=== PATIENT | male | born 1965 | race Caucasian/White ===

== ENCOUNTER 2017-07-25 09:48 | Inpatient (IN) | payer BC, OTHER ==
--- NOTE | 2017-07-25 09:57 | PDOC ---
History of Present Illness - General Chief Complaint: CVA/TIA Stated Complaint: left arm pins and needles and left sice numbness Time Seen by Provider: 07/25/17 09:55 - History of Present Illness Initial Comments: 07/25/17 10:45 Chief complaint: Numbness and tingling in the left arm and left side of face History of present illness: Approximately one hour ago, while the patient was driving, he began to experience numbness and tingling of the entire left arm and the left side of his face. This has persisted, although it is less pronounced at present. Denies being aware of any other symptoms Review of systems: Denies headache, weakness of the arms or legs, confusion, difficulty speaking, unsteadiness of gait. Denies chest pain, shortness of breath, abdominal pain, nausea, vomiting, diarrhea, urinary symptoms, recent sore throat, URI, cough, or fever. Remainder systems reviewed and found to be negative Past medical history: Patient denies any serious medical or surgical problems in the past. Takes no medication at home. 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 Fully ambulatory. Exercises 2 times per week at the gym. No chest pain or shortness of breath while exercising Family history: Father at age 49 from unspecified heart condition, although he was a heavy smoker and drinker. Family history otherwise negative Physical exam: Alert and oriented 3, well-developed well-nourished, complaining of tingling in the arm and left side of the face. However, patient is cheerful and fully cooperative Afebrile, vital signs stable except for mildly elevated blood pressure PERRLA 4 mm, fundi benign with sharp disc margins and good central venous pulsations. EOMs full without diplopia. ENT clear. Neck supple without bruit mass or nodes Lungs clear with full breath sounds throughout bilaterally, no wheezes rales or rhonchi CV S1 and S2 distant without murmur rub or gallop pulses full and symmetric no JVD or edema no bruits Abdomen soft nontender without mass or organomegaly bowel sounds normal nondistended Extremities no CCE Neurological paresthesias and abnormal sensations left lower facial. Paresthesias and decreased sensation left arm and hand, no dermatomal distribution. Strength, however, is maintained, full and symmetric. DTRs 3+ symmetric. Babinskis down. Gait stable and unimpaired Skin clear, no rash, adequate turgor and wet mucous membranes Impression: Neurological changes, sensory, left arm and face, rule out neurologic, cardiac, or metabolic event. Plan: Diagnostic workup including brain CT, EKG and enzymes, CBC and chemistries , urinalysis, and further evaluation depending on results. Neurologic consultation. Past History - Past Medical History Allergies/Adverse Reactions: Allergies Allergy/AdvReac Type Severity Reaction Status Date / Time No Known Allergies Allergy Verified 07/25/17 09:49 Home Medications: Ambulatory Orders NK [No Known Home Medication] 07/25/17 GI Disorders: Yes (diverticulitis) - Suicide/Smoking/Psychosocial Hx Smoking History: Former smoker Have you smoked in the past 12 months: Yes Number of Cigarettes Smoked Daily: 10 If you are a former smoker, when did you quit?: 10 years ago Cigars Per Day: 1 Information on smoking cessation initiated: Yes 'Breaking Loose' booklet given: 07/25/17 Hx Alcohol Use: No Drug/Substance Use Hx: No Substance Use Type: None Hx Substance Use Treatment: No *Physical Exam - Vital Signs Last Vital Signs Temp Pulse Resp BP Pulse Ox 98.8 F 89 18 193/98 96 07/25/17 09:49 07/25/17 09:49 07/25/17 09:49 07/25/17 09:49 07/25/17 09:49 Critical Care Time/MDM Note Total Critical Care Time: 30 Critical Care Statement: The care of this patient involved high complexity decision making to prevent further life threatening deterioration of the patient 's condition and/or to evaluate & treat vital organ system(s) failure or risk of failure. - Medical Decision Making Note: 07/25/17 11:09 EKG was reviewed. Normal sinus rhythm 88/m. Normal axes and intervals. There are T-wave inversions in leads V2 through V6, as well as leads 1 aVL, and flattening in aVF. LVH is present. These ST-T wave changes, however, were present in prior EKG dated 09/21/2013. There appears to be no significant interval change. Head CT shows multiple small old infarcts of the right cerebellar left thalamic and left anterior periventricular regions, there are no acute infarcts identified and no hemorrhages. Discharge Disposition - Diagnosis Cerebrovascular accident (CVA) Qualifiers: CVA mechanism: occlusion Precerebral and cerebral artery: middle cerebral artery Laterality of affected vessel: right Qualified Code(s): I63.511 - Cerebral infarction due to unspecified occlusion or stenosis of right middle cerebral artery - Discharge Dispostion Condition at time of disposition: Stable Admit: Yes
[2017-07-25 10:19] LABS: BASOPHIL 1.3 % (0-2.0); EOSINOPHIL 1.5 % (0-4.5); MEAN CELL VOLUME 91.2 fl (80-96); MEAN PLT VOLUME 9.4 fl (7.5-11.1); NEUTROPHILS 68.6 % (42.8-82.8); PLATELET COUNT 270 K/MM3 (134-434); WHITE BLOOD COUNT 11.9 K/mm3 (4.0-10.8)
[2017-07-25 10:24] LABS: PROTHROMBIN TIME (PATIENT) 11.2 SEC (10.2-13.0)
[2017-07-25 10:39] LABS: ALBUMIN 4.2 g/dl (3.5-5.0); ALK PHOS 87 U/L (32-92); ANION GAP 7 (8-16); BILIRUBIN,TOTAL 0.6 mg/dl (0.2-1.0); CALCIUM 9.3 mg/dl (8.4-10.2); CO2 24 mmol/L (22-28); CPK 207 IU/L (39-308); GLUCOSE,RANDOM 107 mg/dl (74-106); SGOT/AST 23 U/L (10-42); SGPT/ALT 30 U/L (10-40); TOT PROT 6.8 g/dl (6.4-8.3)
[2017-07-25 10:47] LABS: TROPONIN I (DFP) 0.04 ng/ml (0.03-0.50)
[2017-07-25] MEDS ORDERED: LABETALOL HCL 5 MG/1 ML (100MG/20 ML VIAL) IVPUSH ONE ×2 (11:33→11:57)
[2017-07-25] MEDS ORDERED: LABETALOL HCL 5 MG/1 ML (100MG/20 ML VIAL) ONE (11:47)
--- NOTE | 2017-07-25 12:14 | HP ---
CHIEF COMPLAINT: left facial numbness PCP: "I don't have a doctor" HISTORY OF PRESENT ILLNESS: Patient is a 52 y/o male with a past medical history of diverticulitis and hypertension. Patient reports at 0800 on this date, he developed left sided facial and arm numbness. Patient reports the symptoms resolved after arriving to the emergency department. Patient denies any chest pain or shortness of breath. He does report a past medical history of hypertension, however, he does not take any medications at home. ER course was notable for: (1)ct of head right cerebellar, left thalamic, and left periventricular small old infarcts (2) b/p 193/98 (3) ekg nsr t wave inversions in the anterior lateral leads Recent Travel: none PAST MEDICAL HISTORY: hypertension, diverticulitis. PAST SURGICAL HISTORY: none Social History: employed Smoking:former smoker quit 10 years ago Alcohol: social Drugs: none Family History: father unknown heart condition. Allergies No Known Allergies Allergy (Verified 07/25/17 09:49) HOME MEDICATIONS: Home Medications Medication Instructions Recorded NK [No Known Home Medication] 07/25/17 REVIEW OF SYSTEMS CONSTITUTIONAL: Absent: fever, chills, diaphoresis, generalized weakness, malaise, loss of appetite, weight change HEENT: Absent: rhinorrhea, nasal congestion, throat pain, throat swelling, difficulty swallowing, mouth swelling, ear pain, eye pain, visual changes CARDIOVASCULAR: Absent: chest pain, syncope, palpitations, irregular heart rate, lightheadedness , peripheral edema RESPIRATORY: Absent: cough, shortness of breath, dyspnea with exertion, orthopnea, wheezing, stridor, hemoptysis GASTROINTESTINAL: Absent: abdominal pain, abdominal distension, nausea, vomiting, diarrhea, constipation, melena, hematochezia GENITOURINARY: Absent: dysuria, frequency, urgency, hesitancy, hematuria, flank pain, genital pain MUSCULOSKELETAL: Absent: myalgia, arthralgia, joint swelling, back pain, neck pain SKIN: Absent: rash, itching, pallor HEMATOLOGIC/IMMUNOLOGIC: Absent: easy bleeding, easy bruising, lymphadenopathy, frequent infections ENDOCRINE: Absent: unexplained weight gain, unexplained weight loss, heat intolerance, cold intolerance NEUROLOGIC: Present: left sided facial and arm paresthesia Absent: headache, focal weakness or paresthesias, dizziness, unsteady gait, seizure, mental status changes, bladder or bowel incontinence PSYCHIATRIC: Absent: anxiety, depression, suicidal or homicidal ideation, hallucinations. PHYSICAL EXAMINATION Vital Signs - 24 hr 07/25/17 07/25/17 07/25/17 09:49 09:54 11:10 Temperature 98.8 F Pulse Rate 89 Pulse Rate [ 90 84 Apical] Respiratory 18 18 20 Rate Blood Pressure 193/98 Blood Pressure 174/92 158/110 [Arm] O2 Sat by Pulse 96 98 98 Oximetry (%) 07/25/17 11:59 Temperature Pulse Rate Pulse Rate [ 74 Apical] Respiratory 16 Rate Blood Pressure Blood Pressure 146/96 [Arm] O2 Sat by Pulse 96 Oximetry (%) GENERAL: Awake, alert, and fully oriented, in no acute distress. HEAD: Normal with no signs of trauma. EYES: Pupils equal, round and reactive to light, extraocular movements intact, sclera anicteric, conjunctiva clear. No lid lag. EARS, NOSE, THROAT: Ears normal, nares patent, oropharynx clear without exudates. Moist mucous membranes. NECK: Normal range of motion, supple without lymphadenopathy, JVD, or masses. LUNGS: Breath sounds equal, clear to auscultation bilaterally. No wheezes, and no crackles. No accessory muscle use. HEART: Regular rate and rhythm, normal S1 and S2 without murmur, rub or gallop. ABDOMEN: Soft, nontender, not distended, normoactive bowel sounds, no guarding, no rebound, no masses. No hepatomegaly or splenomegaly. MUSCULOSKELETAL: Normal range of motion at all joints. No bony deformities or tenderness. No CVA tenderness. UPPER EXTREMITIES: 2+ pulses, warm, well-perfused. No cyanosis. No clubbing. No peripheral edema. LOWER EXTREMITIES: 2+ pulses, warm, well-perfused. No calf tenderness. No peripheral edema. NEUROLOGICAL: Cranial nerves II-XII intact. upper extremity 3/4, lower extremity 4/4, flattening of left nasal labial fold Normal speech. Normal gait. PSYCHIATRIC: Cooperative. Good eye contact. Appropriate mood and affect. SKIN: Warm, dry, normal turgor, no rashes or lesions noted, normal capillary refill. Laboratory Results - last 24 hr 07/25/17 07/25/17 07/25/17 09:59 10:00 10:00 WBC 11.9 H RBC 5.79 H Hgb 18.0 H D Hct 52.8 H MCV 91.2 MCH 31.0 MCHC 34.0 RDW 13.0 Plt Count 270 D MPV 9.4 Neutrophils % 68.6 Lymphocytes % 19.7 D Monocytes % 8.9 Eosinophils % 1.5 Basophils % 1.3 D PT with INR 11.2 INR 1.00 Sodium Potassium Chloride Carbon Dioxide Anion Gap BUN Creatinine Creat Clearance w eGFR POC Glucometer [id number] Random Glucose Calcium Total Bilirubin AST ALT Alkaline Phosphatase Creatine Kinase Creatine Kinase Index CK-MB (CK-2) Troponin I Total Protein Albumin 07/25/17 10:00 WBC RBC Hgb Hct MCV MCH MCHC RDW Plt Count MPV Neutrophils % Lymphocytes % Monocytes % Eosinophils % Basophils % PT with INR INR Sodium 135 L Potassium 4.1 Chloride 104 Carbon Dioxide 24 Anion Gap 7 L BUN 15 D Creatinine 1.0 Creat Clearance w eGFR > 60 POC Glucometer Random Glucose 107 H Calcium 9.3 Total Bilirubin 0.6 AST 23 D ALT 30 D Alkaline Phosphatase 87 D Creatine Kinase 207 Creatine Kinase Index 2.1 CK-MB (CK-2) 4.4 H Troponin I 0.04 Total Protein 6.8 Albumin 4.2 D ASSESSMENT/PLAN: F/E/N -low sodium diet - replete lytes prn ppx - oob - scd - pepcid dispo: requires telemetry observation full code Problem List - Problem (1) Hypertension Assessment/Plan: - b/p at goal, strict b/p monitoring, b/p q4h - stat echo - appreciate cardiology input Code(s): I10 - ESSENTIAL (PRIMARY) HYPERTENSION Qualifiers: Hypertension type: essential hypertension Qualified Code(s): I10 - Essential (primary) hypertension; I10 - Essential (primary) hypertension; I10 - Essential (primary) hypertension (2) TIA (transient ischemic attack) Assessment/Plan: - ct scan of head reviewed, pending MRI/MRA of brain and MRA of neck - aspirin 325mg x 1 ordered, continue ASA daily - allow for permissive hypertension - continuous cardiac monitoring - q4h neuro checks - appreciate neurology input Code(s): G45.9 - TRANSIENT CEREBRAL ISCHEMIC ATTACK, UNSPECIFIED Qualifiers: Transient cerebral ischemia type: unspecified Qualified Code(s): G45.9 - Transient cerebral ischemic attack, unspecified; G45.9 - Transient cerebral ischemic attack, unspecified; G45.9 - Transient cerebral ischemic attack, unspecified Visit type - Emergency Visit Emergency Visit: Yes ED Registration Date: 07/25/17 Care time: The patient presented to the Emergency Department on the above date and was hospitalized for further evaluation of their emergent condition. - New Patient This patient is new to me today: Yes Date on this admission: 07/25/17 - Critical Care Critical Care patient: Yes Total Critical Care Time (in minutes): 45 Critical Care Statement: The care of this patient involved high complexity decision making to prevent further life threatening deterioration of the patient 's condition and/or to evaluate & treat vital organ system(s) failure or risk of failure.
[2017-07-25] MEDS ORDERED: ASPIRIN 325 MG TABLET PO ONE (12:45)
--- NOTE | 2017-07-25 14:20 | CON.CARD ---
Consult Consult Specialty:: Cardiology Referred by:: Hospitalist Service Reason for Consultation:: Cardiac evaluation - History of Present Illness Chief Complaint: Left arm numbness History of Present Illness: Patient is a 52 year old male with underlying history of transient hypertension (not on medication) who presents to ED with complaints of left arm numbness and tingling sensation along with left facial numbness. He denies chest pain, shortness of breath or palpitations. He denies paroxysmal nocturnal dyspnea or orthopnea. He denies headache or lightheadedness. ECG shows sinus rhythm with T wave inversion in anterior leads which does not appear to have changed compared to 2013. CT of the head revealed right cerebellar and left periventricular small infarct, but MRI of the brain was negative. Cardiology consultation was called for further evaluation. - History Source History Provided By: Patient, Medical Record Limitations to Obtaining History: No Limitations - Past Medical History Cardio/Vascular: Yes: HTN - Past Surgical History Past Surgical History: Yes: None - Alcohol/Substance Use Hx Alcohol Use: Yes (Social) History of Substance Use: reports: None - Smoking History Smoking history: Former smoker Have you smoked in the past 12 months: Yes Aproximately how many cigarettes per day: 10 If you are a former smoker, when did you quit?: 10 years ago Home Medications - Allergies Allergies/Adverse Reactions: Allergies Allergy/AdvReac Type Severity Reaction Status Date / Time No Known Allergies Allergy Verified 07/25/17 09:49 - Home Medications Home Medications: Ambulatory Orders NK [No Known Home Medication] 07/25/17 Family Disease History - Family Disease History Other Family History: Probable heart disease in the family Review of Systems - Review of Systems Constitutional: denies: Chills, Fever Cardiovascular: denies: Chest Pain, Palpitations, Shortness of Breath Respiratory: denies: Cough, Hemoptysis, Orthopnea, PND, SOB, SOB on Exertion Gastrointestinal: denies: Abdominal Pain, Constipation, Diarrhea, Melena, Nausea , Rectal Bleeding, Vomiting Musculoskeletal: denies: Joint Pain Neurological: reports: Numbness. denies: Dizziness, Headache, Seizure, Syncope , Unsteady Gait, Weakness Vital Signs: Vital Signs Temperature 98.8 F 07/25/17 09:49 Pulse Rate 74 07/25/17 11:59 Respiratory Rate 16 07/25/17 11:59 Blood Pressure 146/96 07/25/17 11:59 O2 Sat by Pulse Oximetry (%) 96 07/25/17 11:59 Neck: Yes: Supple Respiratory: Yes: Regular Gastrointestinal: Yes: Normal Bowel Sounds, Soft. No: Tenderness Cardiovascular: Yes: Regular Rate and Rhythm JVD: No Carotid Bruit: No PMI: Non-Displaced Heart Sounds: Yes: S1, S2 Murmur: No: Systolic Murmur, Diastolic Murmur Edema: No - Other Data Labs, Other Data: INR, PTT INR 1.00 (0.82-1.09) 07/25/17 10:00 Sinus rhythm with T wave inversion in anterior leads Echo: Pending Imaging - Results Chest X-ray: Report Reviewed Cat Scan: Report Reviewed (Head CT as noted on HPI) MRI: Report Reviewed (Negative) EKG: Report Reviewed Problem List - Problems (1) Hypertension Code(s): I10 - ESSENTIAL (PRIMARY) HYPERTENSION Qualifiers: Hypertension type: essential hypertension Qualified Code(s): I10 - Essential (primary) hypertension; I10 - Essential (primary) hypertension; I10 - Essential (primary) hypertension (2) TIA (transient ischemic attack) Code(s): G45.9 - TRANSIENT CEREBRAL ISCHEMIC ATTACK, UNSPECIFIED Qualifiers: Transient cerebral ischemia type: unspecified Qualified Code(s): G45.9 - Transient cerebral ischemic attack, unspecified; G45.9 - Transient cerebral ischemic attack, unspecified; G45.9 - Transient cerebral ischemic attack, unspecified (3) Abnormal ECG Code(s): R94.31 - ABNORMAL ELECTROCARDIOGRAM [ECG] [EKG] Assessment/Plan 1. Left arm and left facial numbness, etiology to be determined, appears TIA, but MRI and Head CT report noted 2. Hypertension - labile 3. Abnormal ECG may be related to above hypertension vs. underlying CAD with ischemia PLAN: 1. Serial cardiac enzymes 2. Add ASA 81 mg once a day 3. Add ACEI or ARB and beta pita for BP control 4. Check lipid panel and consider adding statin 5. Transthoracic echocardiography to assess LV/RV and valvular function 6. Consider nuclear myocardial perfusion imaging study if cardiac enzymes are negative, otherwise cardiac catheterization may be needed 7. Neurology consultation has been called Further plans are to follow Cosme Lux MD
[2017-07-25 14:34] VITALS: BMI 68.8
[2017-07-25] MEDS ORDERED: ACETAMINOPHEN 325 MG TABLET (FP) PO PRN (14:39)
[2017-07-25] MEDS ORDERED: ZOLPIDEM TARTRATE 5 MG TABLET PO PRN (14:39)
[2017-07-25] MEDS: LOSARTAN POTASSIUM 50 MG TABLET (FP) PO SCH (14:41)
[2017-07-25] MEDS ORDERED: amLODIPine BESYLATE 5 MG TABLET (FP) PO ONE (15:00)
[2017-07-25 16:23] LABS: URINE APPEARANCE Clear; URINE BILIRUBIN Negative (NEGATIVE); URINE BLOOD Negative (NEGATIVE); URINE GLUCOSE (UA) Negative (NEGATIVE); URINE KETONE Negative (NEGATIVE); URINE LEUK ESTERASE Negative (NEGATIVE); URINE NITRITE Negative (NEGATIVE); URINE PROTEIN Negative (NEGATIVE); URINE UROBILINOGEN 0.2 (0.2-1.0)
[2017-07-25 16:24] LABS: URINE COLOR YELLOW
[2017-07-25 16:49] LABS: TROPONIN I (DFP) 0.04 ng/ml (0.03-0.50)
[2017-07-25 19:38] LABS: TROPONIN I (DFP) 0.04 ng/ml (0.03-0.50)
--- NOTE | 2017-07-25 20:20 | EKG ---
Test Reason : Blood Pressure : / mmHG Vent. Rate : 088 BPM Atrial Rate : 088 BPM P-R Int : 148 ms QRS Dur : 074 ms QT Int : 368 ms P-R-T Axes : 048 025 153 degrees QTc Int : 445 ms BASELINE ARTIFACT NORMAL SINUS RHYTHM POSSIBLE LEFT ATRIAL ENLARGEMENT ABNORMAL ECG NO PREVIOUS ECGS AVAILABLE FOLLOW UP EKG IS RECOMMENDED Confirmed by MARGARITA RICHARDS MD ([id number]) on 07/25/2017 8:20:08 PM Referred By: ROGER MARTINEZ Confirmed By:MARGARITA RICHARDS MD
[2017-07-25] MEDS: METOPROLOL TARTRATE 25 MG TABLET (FP) PO SCH (22:32)
--- NOTE | 2017-07-26 07:59 | PN ---
Physical Exam: SUBJECTIVE: Patient seen and examined, patient is ambulatory at bedside, patient reports feeling well, denies any chest pain, headache, or dyspnea upon exertion. OBJECTIVE: patient is a 52 y/o male with a past medical history of hypertension and diverticulitis. Patient was admitted from the emergency department for acute cva. Vital Signs Period Temp Pulse Resp BP Sys/Wells Pulse Ox Last 24 Hr 97.6 F-98.1 F 72-78 18-18 130-156/68-74 97 GENERAL: The patient is awake, alert, and fully oriented, in no acute distress. HEAD: Normal with no signs of trauma. EYES: PERRL, extraocular movements intact, sclera anicteric, conjunctiva clear. No ptosis. ENT: Ears normal, nares patent, oropharynx clear without exudates, moist mucous membranes. NECK: Trachea midline, full range of motion, supple. LUNGS: Breath sounds equal, clear to auscultation bilaterally, no wheezes, no crackles, no accessory muscle use. HEART: Regular rate and rhythm, S1, S2 without murmur, rub or gallop. ABDOMEN: Soft, nontender, nondistended, normoactive bowel sounds, no guarding, no rebound, no hepatosplenomegaly, no masses. EXTREMITIES: 2+ pulses, warm, well-perfused, no edema. NEUROLOGICAL: Cranial nerves II through XII grossly intact. Normal speech, gait not observed. PSYCH: Normal mood, normal affect. SKIN: Warm, dry, normal turgor, no rashes or lesions noted Laboratory Results - last 24 hr 07/25/17 07/25/17 07/25/17 16:00 16:15 19:00 Creatine Kinase 171 162 Creatine Kinase Index 2.1 1.9 CK-MB (CK-2) 3.6 3.1 Troponin I 0.04 0.04 Urine Color Yellow Urine Appearance Clear Urine pH 6.0 Ur Specific [place] 1.015 Urine Protein Negative Urine Glucose (UA) Negative Urine Ketones Negative Urine Blood Negative Urine Nitrite Negative Urine Bilirubin Negative Urine Urobilinogen 0.2 Laboratory Tests 07/26/17 07:00 Triglycerides 305 H Cholesterol 275 HDL Cholesterol 32 Active Medications Generic Name Dose Route Start Last Admin Trade Name Freq PRN Reason Stop Dose Admin Acetaminophen 650 mg 07/25/17 14:39 Tylenol - PO Q4H PRN FEVER OR PAIN Aspirin 81 mg 07/26/17 10:00 Ecotrin - PO DAILY TERRY Losartan Potassium 50 mg 07/25/17 15:00 07/25/17 14:41 Cozaar - PO 50 mg DAILY TERRY Administration Metoprolol Tartrate 25 mg 07/25/17 22:00 07/25/17 22:32 Lopressor - PO 25 mg BID TERRY Administration Zolpidem Tartrate 5 mg 07/25/17 14:39 Ambien - PO HS PRN INSOMNIA IMAGING head ct: right cerebellar, left thalamic, and left periventricular small old infarcts EKG: t wave inversions in the anterior lateral leads MRI of brain: focal acute/subacute infarct in the right cerebellar peduncle MRA of the brain: no gross focal stenosis, aneurysm, major artery cutoff or AVM noted. MRA of the neck: no evidence of hemodynamic significant stenosis ECHO: LV WNL, moderate AR ASSESSMENT/PLAN: 1) CVA - MRI/MRA brain reviewed, notable for right cerebellar acute/subacute infarct, awaiting Neurology consult, Dr Lerner, page sent out to answering service, awaiting call back - start lipitor - patient is back to baseline, symptoms resolved, patient returned to prior level of function, rehabilitation not indicated at this time. - continuous cardiiac monitoring - continue Aspirin daily - continue q4h neurochecks. 2) card hypertension - b/p at goal continue lopressor and cozaar - echo reviewed - cardiology consulted hyperlipidemia - lipid panel reviewed, start lipitor f/e/n - low sodium/cholesterol diet - replete electrolytes prn ppx - oob - pepcid dispo: requires inpatient telemetry Problem List - Problems (1) Hypertension Code(s): I10 - ESSENTIAL (PRIMARY) HYPERTENSION Qualifiers: Hypertension type: essential hypertension Qualified Code(s): I10 - Essential (primary) hypertension; I10 - Essential (primary) hypertension; I10 - Essential (primary) hypertension (2) TIA (transient ischemic attack) Code(s): G45.9 - TRANSIENT CEREBRAL ISCHEMIC ATTACK, UNSPECIFIED Qualifiers: Transient cerebral ischemia type: unspecified Qualified Code(s): G45.9 - Transient cerebral ischemic attack, unspecified; G45.9 - Transient cerebral ischemic attack, unspecified; G45.9 - Transient cerebral ischemic attack, unspecified Visit type - Emergency Visit Emergency Visit: Yes ED Registration Date: 07/25/17 Care time: The patient presented to the Emergency Department on the above date and was hospitalized for further evaluation of their emergent condition. - New Patient This patient is new to me today: No - Critical Care Critical Care patient: No - Discharge Referral Referred to [facility] Med P.C.: No
[2017-07-26 08:43] LABS: ACTIVATED PTT 28.7 SECONDS (24.0-38.9); INR 0.96 (0.82-1.09); PROTHROMBIN TIME (PATIENT) 10.8 SEC (10.2-13.0)
[2017-07-26 08:45] LABS: ALBUMIN 3.7 g/dl (3.5-5.0); ALK PHOS 77 U/L (32-92); ANION GAP 5 (8-16); BILIRUBIN,TOTAL 0.6 mg/dl (0.2-1.0); CALCIUM 8.6 mg/dl (8.4-10.2); CHOLESTEROL 275 mg/dl; CO2 24 mmol/L (22-28); GLUCOSE,RANDOM 106 mg/dl (74-106); MAGNESIUM 2.1 mg/dL (1.8-2.4); PHOSPHOROUS 3.2 mg/dl (2.5-4.6); SGOT/AST 18 U/L (10-42); SGPT/ALT 27 U/L (10-40); TOT PROT 6.3 g/dl (6.4-8.3)
[2017-07-26 08:52] LABS: EOSINOPHIL 2.8 % (0-4.5); WHITE BLOOD COUNT 12.4 K/mm3 (4.0-10.0)
[2017-07-26 08:58] LABS: BASOPHIL 0.6 % (0-2.0); MCH 30.4 pg (25.7-33.7); MCHC 33.5 g/dl (32.0-35.9); MEAN CELL VOLUME 90.8 fl (80-96); MEAN PLT VOLUME 9.2 fl (7.5-11.1); NEUTROPHILS 66.3 % (42.8-82.8); PLATELET COUNT 258 K/MM3 (134-434)
--- NOTE | 2017-07-26 09:17 | CONSULT ---
Consult - text type - Consultation Consultation Note: NEUROLOGY CONSULTATION is greatly appereciated: This 52 RH man with h/o HTN and diverticular disease hasn't seen a physician in a few years. Former smoker. + FH of ASHD, Yesterday 8 AM was driving to the [employer] when he developed numbness and tingling of the left arm and face. CT of head (reviewed) shows a chronic left posterior Thalamic lacunar infarct with encephalomalacia. BP in the ER was 200/140. MRI of brain (reviewed) confirms the left thalamic infarct, 2 subcortical left lacunar infarcts and a new (subacute) right deep cerebellar and brainstem CVA. MR Angio of the brain and neck showed no significant stenoses. [employer] NSR. Symptoms improved by 4 PM, recurred transiently around 8 PM and have resolved this AM. FLAQUITA: BP 130/70 NEURO: MS/Speech: Normal CN II-XII: Normal without nystagmus. Gag, tongue FABIOLA's OK Motor: No drift or tremor. Brisk, symmetrical reflexes. Downgoing toes. Coord: No FTN Dystaxia Sensory: Normal to vibration, cold and dtouch. Romberg neg Gait: Sl wide based. Min difficulty with tandem. IMP: Essentially normal neuro exam. Doing well after Hypertensive cerebellar and brainstem lacunar infarct Possible contribution from hypertensive encephalopathy. SUGGEST: Aggressive BP control. Antiplatelet Rx with clopidogrel 75 mg qd. Check Chol, HDL etc and start a statin. 72 hour halter or implanted loop monitor. Weight loss, aerobic exercise and home BP monitoring. Check B12, homocysteine levels. Out patient f/u to Primary MD, Cardiology and neurology. Thank you very much, Monroe Lerner MD
[2017-07-26] MEDS ORDERED: ASPIRIN COATED 81 MG TABLET.EC PO SCH (10:00)
[2017-07-26] MEDS: LOSARTAN POTASSIUM 50 MG TABLET (FP) PO SCH (10:03)
[2017-07-26] MEDS: METOPROLOL TARTRATE 25 MG TABLET (FP) PO SCH (10:03)
[2017-07-26] MEDS ORDERED: CLOPIDOGREL BISULFATE 75 MG TABLET (FP) PO SCH (10:30)
--- NOTE | 2017-07-26 12:48 | PN ---
Progress Note, Physician History of Present Illness: Left arm and facial numbness referable to acute right cerebellar stroke resolved , BP improved. - Current Medication List Current Medications: Active Medications Acetaminophen (Tylenol -) 650 mg PO Q4H PRN PRN Reason: FEVER OR PAIN Aspirin (Ecotrin -) 81 mg PO DAILY [facility] Last Admin: 07/26/17 10:03 Dose: 81 mg Atorvastatin Calcium (Lipitor -) 40 mg PO HS [facility] Clopidogrel Bisulfate (Plavix -) 75 mg PO DAILY [facility] Losartan Potassium (Cozaar -) 50 mg PO DAILY [facility] Last Admin: 07/26/17 10:03 Dose: 50 mg Metoprolol Tartrate (Lopressor -) 25 mg PO BID [facility] Last Admin: 07/26/17 10:03 Dose: 25 mg Zolpidem Tartrate (Ambien -) 5 mg PO HS PRN PRN Reason: INSOMNIA - Objective Vital Signs: Vital Signs Temperature 98.1 F 07/26/17 06:33 Pulse Rate 72 07/26/17 06:33 Respiratory Rate 18 07/26/17 08:25 Blood Pressure 130/68 07/26/17 06:33 O2 Sat by Pulse Oximetry (%) 97 07/26/17 08:25 Constitutional: Yes: No Distress, Calm Neck: Yes: Supple Cardiovascular: Yes: Regular Rate and Rhythm Respiratory: Yes: Regular, CTA Bilaterally Gastrointestinal: Yes: Normal Bowel Sounds, Soft Edema: No Labs: CBC, BMP 07/26/17 07:00 07/26/17 07:00 INR, PTT INR 0.96 (0.82-1.09) L 07/26/17 07:00 - ....Imaging MRI: Report Reviewed (CT of head (reviewed) shows a chronic left posterior Thalamic lacunar infarct with encephalomalacia. MRI of brain (reviewed) confirms the left thalamic infarct, 2 subcortical left lacunar infarcts and a new (subacute) right deep cerebellar and brainstem CVA. MR Angio of the brain and neck showed no significant stenoses.) EKG: Report Reviewed (NSR LVH with anterolateral TWI Tele: SR w/o PAF) Problem List - Problems (1) Abnormal ECG Code(s): R94.31 - ABNORMAL ELECTROCARDIOGRAM [ECG] [EKG] (2) Cerebrovascular accident (CVA) Code(s): I63.9 - CEREBRAL INFARCTION, UNSPECIFIED Qualifiers: CVA mechanism: occlusion Precerebral and cerebral artery: middle cerebral artery Laterality of affected vessel: right Qualified Code(s): I63.511 - Cerebral infarction due to unspecified occlusion or stenosis of right middle cerebral artery; I63.511 - Cerebral infarction due to unspecified occlusion or stenosis of right middle cerebral artery; I63.511 - Cerebral infarction due to unspecified occlusion or stenosis of right middle cerebral artery; I63.511 - Cerebral infarction due to unspecified occlusion or stenosis of right middle cerebral artery (3) Hypertensive encephalopathy Code(s): I67.4 - HYPERTENSIVE ENCEPHALOPATHY (4) Hyperlipidemia Code(s): E78.5 - HYPERLIPIDEMIA, UNSPECIFIED Qualifiers: Hyperlipidemia type: pure hypercholesterolemia Qualified Code(s): E78.00 - Pure hypercholesterolemia, unspecified; E78.00 - Pure hypercholesterolemia, unspecified; E78.00 - Pure hypercholesterolemia, unspecified; E78.0 - Pure hypercholesterolemia Assessment/Plan 07/25/2017 Echo: Normal LV size and function, mild-mod AR 1. Left arm and left facial numbness referable to hypertensive cerebellar and brainstem lacunar infarct improved 2. Hypertension - labile 3. Abnormal ECG may be related to above hypertension vs. underlying CAD with ischemia PLAN: 1. Ruled out for [place] 2. Continue ASA 81 mg daily, clopidogrel 75 mg daily, losartan 50 mg daily, lopressor 25 bid and lipitor 40 mg daily 3. Consider nuclear myocardial perfusion imaging study as outpatient 4. Neurology consultation appreciated, outpatient f/u for extended arrhythmia monitoring, may d/c home from CV standpoint
--- NOTE | 2017-07-26 13:37 | DS ---
Physical Exam: SUBJECTIVE: Patient seen and examined, patient is ambulatory at bedside, denies any chest pain or shortness of breath, reports feeling well, denies any headache , paresthesia, or extremity weakness. OBJECTIVE: Patient is a 52 y/o male with a past medical history of diverticulitis and hypertension. Patient reports at 0800 on this date, he developed left sided facial and arm numbness. Patient reports the symptoms resolved after arriving to the emergency department. Patient denies any chest pain or shortness of breath. He does report a past medical history of hypertension, however, he does not take any medications at home. ER course was notable for: (1)ct of head right cerebellar, left thalamic, and left periventricular small old infarcts (2) b/p 193/98 (3) ekg nsr t wave inversions in the anterior lateral leads Vital Signs Period Temp Pulse Resp BP Sys/Wells Pulse Ox Last 24 Hr 97.6 F-98.1 F 72-78 18-18 130-156/68-74 97-97 PHYSICAL EXAM GENERAL: The patient is awake, alert, and fully oriented, in no acute distress. HEAD: Normal with no signs of trauma. EYES: PERRL, extraocular movements intact, sclera anicteric, conjunctiva clear. ENT: Ears normal, nares patent, oropharynx clear without exudates, moist mucous membranes. NECK: Trachea midline, full range of motion, supple. LUNGS: Breath sounds equal, clear to auscultation bilaterally, no wheezes, no crackles, no accessory muscle use. HEART: Regular rate and rhythm, S1, S2 without murmur, rub or gallop. ABDOMEN: Soft, nontender, nondistended, normoactive bowel sounds, no guarding, no rebound, no hepatosplenomegaly, no masses. EXTREMITIES: 2+ pulses, warm, well-perfused, no edema. NEUROLOGICAL: Cranial nerves II through XII grossly intact. Normal speech, gait not observed. PSYCH: Normal mood, normal affect. SKIN: Warm, dry, normal turgor, no rashes or lesions noted. LABS Laboratory Results - last 24 hr 07/25/17 07/25/17 07/25/17 16:00 16:15 19:00 WBC RBC Hgb Hct MCV MCH MCHC RDW Plt Count MPV Neutrophils % Lymphocytes % Monocytes % Eosinophils % Basophils % PT with INR INR PTT (Actin FS) Sodium Potassium Chloride Carbon Dioxide Anion Gap BUN Creatinine Creat Clearance w eGFR Random Glucose Hemoglobin A1c % Calcium Phosphorus Magnesium Total Bilirubin AST ALT Alkaline Phosphatase Ammonia Creatine Kinase 171 162 Creatine Kinase Index 2.1 1.9 CK-MB (CK-2) 3.6 3.1 Troponin I 0.04 0.04 Total Protein Albumin Triglycerides Cholesterol Total LDL Cholesterol HDL Cholesterol Urine Color Yellow Urine Appearance Clear Urine pH 6.0 Ur Specific [place] 1.015 Urine Protein Negative Urine Glucose (UA) Negative Urine Ketones Negative Urine Blood Negative Urine Nitrite Negative Urine Bilirubin Negative Urine Urobilinogen 0.2 07/26/17 07/26/17 07/26/17 07:00 07:00 07:00 WBC 12.4 H RBC 5.31 Hgb 16.1 Hct 48.2 MCV 90.8 MCH 30.4 MCHC 33.5 RDW 14.0 Plt Count 258 MPV 9.2 Neutrophils % 66.3 Lymphocytes % 19.7 Monocytes % 10.6 H Eosinophils % 2.8 Basophils % 0.6 PT with INR 10.8 INR 0.96 L PTT (Actin FS) 28.7 Sodium 135 L Potassium 3.9 Chloride 106 Carbon Dioxide 24 Anion Gap 5 L BUN 14 Creatinine 1.0 Creat Clearance w eGFR > 60 Random Glucose 106 Hemoglobin A1c % Calcium 8.6 Phosphorus 3.2 Magnesium 2.1 Total Bilirubin 0.6 AST 18 D ALT 27 Alkaline Phosphatase 77 Ammonia Creatine Kinase Creatine Kinase Index CK-MB (CK-2) Troponin I Total Protein 6.3 L Albumin 3.7 Triglycerides 305 H Cholesterol 275 Total LDL Cholesterol 182 H HDL Cholesterol 32 Urine Color Urine Appearance Urine pH Ur Specific [place] Urine Protein Urine Glucose (UA) Urine Ketones Urine Blood Urine Nitrite Urine Bilirubin Urine Urobilinogen 07/26/17 07/26/17 07:00 07:00 WBC RBC Hgb Hct MCV MCH MCHC RDW Plt Count MPV Neutrophils % Lymphocytes % Monocytes % Eosinophils % Basophils % PT with INR INR PTT (Actin FS) Sodium Potassium Chloride Carbon Dioxide Anion Gap BUN Creatinine Creat Clearance w eGFR Random Glucose Hemoglobin A1c % 6.0 Calcium Phosphorus Magnesium Total Bilirubin AST ALT Alkaline Phosphatase Ammonia 21.29 Creatine Kinase Creatine Kinase Index CK-MB (CK-2) Troponin I Total Protein Albumin Triglycerides Cholesterol Total LDL Cholesterol HDL Cholesterol Urine Color Urine Appearance Urine pH Ur Specific [place] Urine Protein Urine Glucose (UA) Urine Ketones Urine Blood Urine Nitrite Urine Bilirubin Urine Urobilinogen IMAGING head ct: right cerebellar, left thalamic, and left periventricular small old infarcts EKG: t wave inversions in the anterior lateral leads MRI of brain: focal acute/subacute infarct in the right cerebellar peduncle MRA of the brain: no gross focal stenosis, aneurysm, major artery cutoff or AVM noted. MRA of the neck: no evidence of hemodynamic significant stenosis ECHO: LV WNL, moderate AR HOSPITAL COURSE: Patient was admitted from the emergency department of acute CVA, MRI/MRA brain reviewed, notable for right cerebellar acute/subacute infarct. Consulted with neurologist, Dr Lerner, case discussed at bedside, patient to start Plavix. Patient is back to baseline, symptoms resolved, patient returned to prior level of function, rehabilitation not indicated at this time. patient was placed on lipitor. Continuous cardiiac monitoring with every four hour neurochecks throughout admission. Patient was noted to be hypertensive upon arrival. b/p at goal with lopressor and cozaar. Hoisting Machine Operator, Dr Gill/Maci was consulted and followed. Lipid panel was notable for hyperlipidemia and patient was started on lipitor. Date of Admission:07/25/17 Date of Discharge: 07/26/17 Minutes to complete discharge: 45 Discharge Summary Reason For Visit: CEREBROVASCULAR ACCIDENT (CVA) Current Active Problems Abnormal ECG (Acute) Cerebrovascular accident (CVA) (Acute) Hypertension (Acute) TIA (transient ischemic attack) (Acute) Condition: Stable - Instructions Diet, Activity, Other Instructions: - YOU WERE ADMITTED TO THE HOSPITAL FOR A STROKE - CONTINUE LOW SODIUM DIET - PLEASE TAKE YOUR BLOOD PRESSURE DAILY - YOU ARE PRESCRIBED LOPRESSOR AND [place] FOR YOUR BLOOD PRESSURE - YOU ARE PRESCRIBED LIPITOR FOR YOUR HIGH CHOLESTEROL - CONTINUE TAKING PLAVIX DAILY - PLEASE FOLLOW UP WITH A PRIMARY CARE PHYSICIAN WITHIN 1 WEEK, A REFERRAL WAS INCLUDED IN YOUR DISCHARGE PACKET - PLEASE FOLLOW UP WITH THE NEUROLOGIST AND TEMPORARY DATA ENTRY CLERK WITHIN 2 WEEKS - IF ANY NEW OR PERSISTENT SYMPTOMS DEVELOP PLEASE RETURN TO THE EMERGENCY DEPARTMENT. Referrals: Monroe Lerner MD [Staff Physician] - 3 Weeks Alexandra Coello MD [Staff Physician] - 1 Week Baljit Gill MD [Staff Physician] - 1 Week Disposition: HOME - Home Medications Comprehensive Discharge Medication List: Ambulatory Orders NK [No Known Home Medication] 07/25/17 Problem List - Problems (1) Hypertension Code(s): I10 - ESSENTIAL (PRIMARY) HYPERTENSION Qualifiers: Hypertension type: essential hypertension Qualified Code(s): I10 - Essential (primary) hypertension; I10 - Essential (primary) hypertension; I10 - Essential (primary) hypertension (2) TIA (transient ischemic attack) Code(s): G45.9 - TRANSIENT CEREBRAL ISCHEMIC ATTACK, UNSPECIFIED Qualifiers: Transient cerebral ischemia type: unspecified Qualified Code(s): G45.9 - Transient cerebral ischemic attack, unspecified; G45.9 - Transient cerebral ischemic attack, unspecified; G45.9 - Transient cerebral ischemic attack, unspecified This patient is new to me today: No Emergency Visit: Yes ED Registration Date: 07/25/17 Care time: The patient presented to the Emergency Department on the above date and was hospitalized for further evaluation of their emergent condition. Critical Care patient: No - Discharge Referral Referred to [facility] Med [facility].: No
[2017-07-26 14:04] VITALS: BP 169/91; PULSE 84; TEMP 99.1
[2017-07-26 17:07] LABS: THYROID STIMULATING HORMONE 1.57 uIU/ml (0.358-3.74)
[2017-07-26] MEDS ORDERED: ATORVASTATIN CA 40 MG TABLET (FP) PO SCH (22:00)
--- NOTE | 2017-07-27 12:46 | EKG ---
Test Reason : Blood Pressure : / mmHG Vent. Rate : 075 BPM Atrial Rate : 075 BPM P-R Int : 170 ms QRS Dur : 078 ms QT Int : 412 ms P-R-T Axes : 025 010 181 degrees QTc Int : 460 ms NORMAL SINUS RHYTHM PROLONGED QT ABNORMAL ECG WHEN COMPARED WITH ECG OF 25-JUL-2017 09:54, NO SIGNIFICANT CHANGE WAS FOUND Confirmed by ARACELY CLARK MD ([id number]) on 07/27/2017 12:45:38 PM Referred By: Confirmed By:ARACELY CLARK MD
== END 2017-07-26 14:40 | disposition home or self-care (01) | DRG 65 ==
LOC: FER 09:48 → UNDOADMOB 12:40 → FM/S 12:40 → INTOOBSV 15:47 → OBSVTOIN 15:47
PROVIDERS: ADMIT Internal Medicine; ATTEND Nurse Practitioner Family
DX: I63.9 Cerebral infarction, unspecified (principal); I67.4 Hypertensive encephalopathy; E78.5 Hyperlipidemia, unspecified; R20.0 Anesthesia of skin
CPT/HCPCS: 36415; 70450-TC; 70544-TC; 70547-TC; 70551-TC; 71010-TC; 80053; 80061; 81003; 82140; 82553; 82607; 83036; 83721; 83735; 84100; 84443; 84484; 85025; 85610; 85730; 93005; 93306-TC; 99283-25